=== PATIENT | female | born 1980 | race Caucasian/White ===

== ENCOUNTER 2019-01-03 23:47 | Emergency (ER) | payer SELFPAY ==
--- NOTE | 2019-01-03 23:50 | PDOC ---
History of Present Illness - General Chief Complaint: Alcohol intoxication Stated Complaint: INTOX Time Seen by Provider: 01/03/19 23:50 - History of Present Illness Initial Comments: 01/04/19 00:26 This 38-year-old woman with no apparent medical history is brought in by ambulance with a history of alcohol intoxication. Patient had attended a concert with her [id number] and when they arrived home by automobile, the patient was heavily intoxicated and could not remove her from the car. EMS was called and patient arrived here. According to the [id number], patient drank " 6 beers and 3 glasses of wine" prior to the concert and was removed by police prior to the start of the concert. states that he has seen his intoxicated before but has not seen this level of unresponsiveness secondary to alcohol intoxication before. According to the , the patient does not drink on a daily basis other than "a glass of wine ". She does not use any other recreational drugs. Patient is verbal and responsive: remembers being at the concert and is disappointed that she did not see it. Otherwise, she cannot remember how much alcohol she drank or other details of the evening. She has no pain, shortness of breath or other complaints No daily medications No known allergies Social smoking; does not drink alcohol every day, no history of other recreational drug use Past History - Past Medical History Allergies/Adverse Reactions: Allergies Allergy/AdvReac Type Severity Reaction Status Date / Time No Known Allergies Allergy Unverified 01/03/19 23:48 Home Medications: Ambulatory Orders NK [No Known Home Medication] 01/03/19 Review of Systems - Review of Systems Able to Perform ROS?: Yes Comments:: 12 point review of systems is negative except for what is noted in the history of present illness *Physical Exam - Physical Exam Comments: GENERAL: Adult female, alcohol on breath, awake and responsive, non-combative; oriented to person HEAD: Normal with no signs of trauma. EYES: PERRLA, pupils 3 mm equal and reactive EOMI, sclera anicteric, conjunctiva clear. ENT: Ears normal, nares patent, oropharynx clear without exudates. Dry mucous membranes. NECK: Normal range of motion, supple without lymphadenopathy, JVD, or masses. LUNGS: Breath sounds equal, clear to auscultation bilaterally. No wheezes, and no crackles. HEART:Regular rate and rhythm, normal S1 and S2 without murmur, rub or gallop. ABDOMEN:.normal bowel sounds No guarding,tenderness or rebound.No masses No distention. EXTREMITIES: Normal range of motion, no edema. No clubbing or cyanosis. No erythema, or tenderness. NEUROLOGICAL: Cranial nerves II through XII grossly intact. Normal speech. No focal neurological deficits. MUSCULOSKELETAL: Back non-tender to palpation, no CVA tenderness SKIN: Warm, Dry, normal turgor, no rashes or lesions noted. Medical Decision Making - Medical Decision Making Clinical presentation consistent with acute alcohol intoxication. Patient is currently responsive and, although somewhat lethargic secondary to her intoxication, is not presenting any abnormal behavior or having any signs on exam that would be suspicious for intoxicant other than alcohol. This was explained to her . IV access was obtained by EMS and patient given a liter of normal saline IV. Has been needed to leave to attend to his children who are at home with his sister ([id number] had stayed at patient's home to be with children while was here with the patient). 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 Patient is now more alert and has been informed that she will need to stay with us until approximately 7 AM since there is no one else that her can get to either monitor the children or to transport the patient home. Patient left the ER at 7 AM, accompanied by her . She was awake and alert, without complaints. She ambulated without ataxia. Recommendations were made to her to rest and drink plenty of fluids as well as use Tylenol as needed for headache. She should follow-up with her general medical doctor within the next 3 days Discharge - Discharge Information Problems reviewed: Yes Clinical Impression/Diagnosis: Alcohol intoxication Qualifiers: Complication of substance-induced condition: uncomplicated Qualified Code(s): F10.920 - Alcohol use, unspecified with intoxication, uncomplicated Condition: Stable Disposition: HOME - Follow up/Referral Referrals: Jose Meehan [Primary Care Provider] - - Patient Discharge Instructions Patient Printed Discharge Instructions: DI for Alcohol Abuse Additional Instructions: Rest; drink plenty fluids Tylenol as needed for headache Follow-up with your physician within the next 2 to 3 days Return to ER if you have severe headache or persistent vomiting - Post Discharge Activity
[2019-01-04 00:02] VITALS: BMI 29.9
[2019-01-04] MEDS ORDERED: SODIUM CHLORIDE 1,000 ML IV STA (00:23)
[2019-01-04 06:58] VITALS: BP 110/65; PULSE 104; TEMP 97.9
== END 2019-01-04 06:59 | disposition home or self-care (01) ==
LOC: FER 23:47
PROC: 3E0337Z Introduction of Electrolytic and Water Balance Substance into Peripheral Vein, Percutaneous Approach (ICD-10-PCS; principal; 2019-01-03)
DX: F10.920 Alcohol use, unspecified with intoxication, uncomplicated (principal)
CPT/HCPCS: 99282-25; J7030

== ENCOUNTER 2020-01-03 10:53 | Emergency (ER) | payer BC ==
[2020-01-03] MEDS ORDERED: DIPHTH,PERTUSS(ACELL),TET 0.5 ML DISP.SYRIN IM ONE ×2 (10:55→11:12)
[2020-01-03] MEDS ORDERED: ACETAMINOPHEN 500 MG TABLET (FP) PO ONE (10:55)
[2020-01-03] MEDS ORDERED: ACETAMINOPHEN 500 MG TABLET (FP) ONE (11:11)
[2020-01-03 11:23] VITALS: BP 129/91; PULSE 60; TEMP 98.1; BMI 33.3
== END 2020-01-03 11:58 | disposition home or self-care (01) ==
LOC: FER 10:53
PROC: 0HQGXZZ Repair Left Hand Skin, External Approach (ICD-10-PCS; principal; 2020-01-03)
PROC: 3E0234Z Introduction of Serum, Toxoid and Vaccine into Muscle, Percutaneous Approach (ICD-10-PCS; 2020-01-03)
DX: S61.211A Laceration without foreign body of left index finger without damage to nail, initial encounter (principal)
CPT/HCPCS: 90715; 99284-25